=== PATIENT | female | born 1995 | race Caucasian/White ===

== ENCOUNTER 2017-10-03 08:17 | Emergency (ER) | payer MEDICAID, OTHER ==
[~2017-10-03] VITALS: Ht 162.6 cm; Wt 70.0 kg
[2017-10-03] MEDS ORDERED: SODIUM CHLORIDE 0.9% 1,000 ML IV ONE ×4 (09:45→15:15)
[2017-10-03 10:23] LABS: BASOPHILS % 0.6 % (0.0-2.0); EOSINOPHILS % 0.2 % (0.0-5.0); HEMATOCRIT. 38.4 % (36.0-48.0); HEMOGLOBIN. 13.2 g/dL (12.0-16.0); LYMPHOCYTES % 15.5 % (20.0-50.0); MEAN CORPUSCULAR HEMOGLOBIN 30.5 pg (28.0-32.0); MEAN CORPUSCULAR VOLUME 88.3 fL (81.0-99.0); MEAN PLATELET VOLUME 7.8 fl (7.4-10.4); MONOCYTES % 3.6 % (2.0-8.0); NEUTROPHILS % 80.1 % (40.0-76.0); PLATELET 293 x1000/uL (130-400); RED BLOOD CELL COUNT 4.35 mill/uL (4.2-5.4); RED CELL DISTRIBUTION WIDTH 12.2 % (11.6-14.6)
[2017-10-03 10:32] LABS: INR 1.1; PROTHROMBIN TIME 11.4 sec (9.4-11.6)
[2017-10-03 10:50] LABS: CARBON DIOXIDE 24 mEq/L (21-32); CHLORIDE 107 mEq/L (98-107); TROPONIN I < 0.02 ng/mL (0.00-0.04)
[2017-10-03] MEDS ORDERED: ZIPRASIDONE MESYLATE 20MG/VIAL IM ONE (11:15)
[2017-10-03] MEDS ORDERED: OLANZAPINE 10 MG/VIAL IM ONE (11:15)
[2017-10-03 11:27] LABS: CLARITY URINE CLEAR (CLEAR); COLOR URINE YELLOW (YELLOW); KETONES URINE 1+ (NEGATIVE); LEUKOCYTE ESTERASE URINE NEGATIVE (NEGATIVE); NITRITE URINE NEGATIVE (NEGATIVE); OCCULT BLOOD URINE 3+ (NEGATIVE); PROTEIN URINE NEGATIVE (NEGATIVE); SPECIFIC GRAVITY URINE 1.009 (1.005-1.030); UROBILINOGEN URINE 0.2 E.U./dL (0.2-1.0)
[2017-10-03] MEDS ORDERED: LORAZEPAM 0.5MG TABLET PO ONE (12:15)
[2017-10-03 12:29] LABS: *AMPHETAMINES SCREEN URINE PRESUMTIVE POSITIVE (NEGATIVE); *BARBITURATES SCREEN URINE NEGATIVE (NEGATIVE); *BENZODIAZEPINES SCREEN URINE NEGATIVE (NEGATIVE); *COCAINE SCREEN URINE NEGATIVE (NEGATIVE); CANNABINOID URINE SCREEN NEGATIVE (NEGATIVE); METHADONE URINE SCREEN NEGATIVE (NEGATIVE); OPIATES URINE SCREEN NEGATIVE (NEGATIVE); PHENCYCLIDINE URINE SCREEN NEGATIVE (NEGATIVE)
[2017-10-03 13:55] LABS: HEPATITIS B SURFACE ANTIGEN NEGATIVE
[2017-10-03 14:23] LABS: HEPATITIS B CORE AB IGM NEGATIVE
[2017-10-03 14:24] LABS: HEPATITIS A AB IGM NEGATIVE (NEGATIVE)
[2017-10-03 17:45] VITALS: BP 108/62
== END 2017-10-03 18:05 | disposition home or self-care (01) ==
LOC: ER 09:02
DX: Z02.89 Encounter for other administrative examinations (principal); E86.0 Dehydration; R00.0 Tachycardia, unspecified; R45.1 Restlessness and agitation; F14.10 Cocaine abuse, uncomplicated; F15.10 Other stimulant abuse, uncomplicated; R79.1 Abnormal coagulation profile; Z87.440 Personal history of urinary (tract) infections
CPT/HCPCS: 36415; 71045; 80053; 80305; 81001; 81025; 83036; 83735; 83880; 84484; 85025; 85610; 93005; 96360; 96361; 96372; 99285; J3486; J3490; J7030; Z7610; 86705; 86709; 86803; 87340

== ENCOUNTER 2019-12-08 16:58 | Emergency (ER) | payer MEDICAID ==
[~2019-12-08] VITALS: Ht 157.5 cm; Wt 100.0 kg
[2019-12-08] MEDS ORDERED: OLANZAPINE 5MG TABLET ODT PO ONE (19:45)
[2019-12-08 20:27] LABS: CHLORIDE 110 mEq/L (98-107)
[2019-12-08 20:31] LABS: ETHANOL BLOOD < 10 mg/dL
[2019-12-08 20:34] LABS: BASOPHILS % 0.3 % (0.0-2.0); EOSINOPHILS % 0.6 % (0.0-5.0); HEMOGLOBIN. 12.6 g/dL (12.0-16.0); LYMPHOCYTES % 21.1 % (20.0-50.0); MEAN CORPUSCULAR HEMOGLOBIN 29.8 pg (28.0-32.0); MEAN CORPUSCULAR VOLUME 87.4 fL (81.0-99.0); MEAN PLATELET VOLUME 7.3 fl (7.4-10.4); MONOCYTES % 5.4 % (2.0-8.0); NEUTROPHILS % 72.6 % (40.0-76.0); PLATELET 342 x1000/uL (130-400); RED BLOOD CELL COUNT 4.23 mill/uL (4.2-5.4); RED CELL DISTRIBUTION WIDTH 12.9 % (11.6-14.6)
[2019-12-08 20:58] LABS: CLARITY URINE TURBID (CLEAR); COLOR URINE YELLOW (YELLOW); KETONES URINE NEGATIVE (NEGATIVE); LEUKOCYTE ESTERASE URINE 1+ (NEGATIVE); NITRITE URINE POSITIVE (NEGATIVE); OCCULT BLOOD URINE NEGATIVE (NEGATIVE); PH URINE 7.5 (4.5-8.0); PROTEIN URINE NEGATIVE (NEGATIVE); SPECIFIC GRAVITY URINE 1.022 (1.005-1.030); UROBILINOGEN URINE 0.2 E.U./dL (0.2-1.0)
[2019-12-08 21:05] LABS: METHADONE URINE SCREEN NEGATIVE (NEGATIVE); OPIATES URINE SCREEN NEGATIVE (NEGATIVE)
[2019-12-08 21:06] LABS: *AMPHETAMINES SCREEN URINE NEGATIVE (NEGATIVE); *BARBITURATES SCREEN URINE NEGATIVE (NEGATIVE); *BENZODIAZEPINES SCREEN URINE NEGATIVE (NEGATIVE); *COCAINE SCREEN URINE NEGATIVE (NEGATIVE); CANNABINOID URINE SCREEN NEGATIVE (NEGATIVE); PHENCYCLIDINE URINE SCREEN NEGATIVE (NEGATIVE)
[2019-12-08] MEDS ORDERED: LORAZEPAM 1MG TABLET PO ONE (21:15)
[2019-12-08] MEDS ORDERED: CEPHALEXIN 250MG CAPSULE PO SCH (21:30)
[2019-12-09] MEDS ORDERED: OLANZAPINE 5MG TABLET ODT PO SCH (02:15)
[2019-12-09] MEDS: CEPHALEXIN 250MG CAPSULE PO SCH ×3 (03:03→17:00)
[2019-12-09] MEDS ORDERED: OLANZAPINE 10MG TABLET PO NR (15:28)
[2019-12-09] MEDS ORDERED: HALOPERIDOL LACTATE 5MG/ML VIAL IM ONE (17:15)
[2019-12-09] MEDS ORDERED: LORAZEPAM 2MG/ML CPJ IM ONE (17:15)
[2019-12-09] MEDS ORDERED: LORAZEPAM 1MG TABLET PO ONE (20:45)
[2019-12-10] MEDS: CEPHALEXIN 250MG CAPSULE PO SCH (08:53)
[2019-12-10] MEDS ORDERED: LORAZEPAM 1MG TABLET PO ONE (09:00)
[2019-12-10 15:20] VITALS: BP 101/64
== END 2019-12-10 16:08 | disposition short-term general hospital (02) ==
LOC: ER 16:58
DX: R45.851 Suicidal ideations (principal); N39.0 Urinary tract infection, site not specified; F31.9 Bipolar disorder, unspecified; F20.9 Schizophrenia, unspecified; F14.10 Cocaine abuse, uncomplicated; F15.10 Other stimulant abuse, uncomplicated; F17.290 Nicotine dependence, other tobacco product, uncomplicated; Z72.89 Other problems related to lifestyle
CPT/HCPCS: 36415; 80053; 80305; 80320; 81003; 85025; 96372; 99285; 99406; G0480

== ENCOUNTER 2022-06-01 20:11 | Inpatient (IN) | payer MEDICAID ==
[~2022-06-01] VITALS: Ht 162.6 cm; Wt 137.0 kg
[2022-06-01] MEDS ORDERED: SODIUM CHLORIDE 0.9% 1,000 ML IV ONE (20:30)
[2022-06-01 21:19] LABS: BASOPHILS % 1.2 % (0.0-2.0); EOSINOPHILS % 1.4 % (0.0-5.0); HEMOGLOBIN. 12.6 g/dL (12.0-16.0); LYMPHOCYTES % 22.9 % (20.0-50.0); MEAN CORPUSCULAR HEMOGLOBIN 27.6 pg (28.0-32.0); MEAN CORPUSCULAR VOLUME 83.5 fL (81.0-99.0); MONOCYTES % 2.8 % (2.0-8.0); NEUTROPHILS % 71.7 % (40.0-76.0); PLATELET 398 x1000/uL (130-400); RED BLOOD CELL COUNT 4.56 mill/uL (4.2-5.4); RED CELL DISTRIBUTION WIDTH 15.6 % (11.6-14.6)
[2022-06-01 21:20] LABS: CHLORIDE 102 mEq/L (98-107)
[2022-06-01 21:25] LABS: HCG SCREEN NEGATIVE
[2022-06-01 23:26] LABS: ETHANOL BLOOD < 10 mg/dL
[2022-06-02] MEDS ORDERED: CLONIDINE 0.1MG TABLET PO PRN (01:30)
[2022-06-02] MEDS ORDERED: HYDROCODONE/ACETAMINOPHEN 5/325MG TABLET PO PRN (01:30)
[2022-06-02] MEDS ORDERED: ONDANSETRON HCL 4MG/2ML INJ IV PRN (01:30)
[2022-06-02] MEDS ORDERED: MAGNESIUM/ALUMINUM HYDROXIDE/SIMETHICONE 30ML UDC PO PRN (01:30)
[2022-06-02] MEDS ORDERED: IPRATROPIUM/ALBUTEROL 0.5-3(2.5)MG/3ML NEB NEB PRN (01:30)
[2022-06-02] MEDS ORDERED: GUAIFENESIN 200MG/10ML SUGAR FREE UDC PO PRN (01:30)
[2022-06-02] MEDS ORDERED: ACETAMINOPHEN 325MG TABLET PO PRN ×2 (01:30)
[2022-06-02] MEDS ORDERED: NALOXONE HCL 0.4MG/ML VIAL IV PRN (02:15)
[2022-06-02 03:56] LABS: HEMATOCRIT 35.9 % (36.0-48.0); HEMOGLOBIN 11.7 g/dL (12.0-16.0); MEAN CORPUSCULAR HEMOGLOBIN 27.3 pg (28.0-32.0); MEAN CORPUSCULAR VOLUME 83.6 fL (81.0-99.0); PLATELET 365 x1000/uL (130-400); RED BLOOD CELL COUNT 4.29 mill/uL (4.2-5.4); RED CELL DISTRIBUTION WIDTH 15.8 % (11.6-14.6)
[2022-06-02 04:04] LABS: CHLORIDE 109 mEq/L (98-107)
[2022-06-02 04:11] LABS: HDL CHOLESTEROL 26 mg/dL (40-59); LDL CHOLESTEROL 79 mg/dL (5-100); PHOSPHORUS 3.7 mg/dL (2.5-4.9)
[2022-06-02 08:00] VITALS: BP_SYST 102; BP_SYST 98; BP_DIAS 50; BP_DIAS 54
[2022-06-02] MEDS: ENOXAPARIN 30MG/0.3ML SYR SUBCUT SCH ×2 (10:53→20:36)
[2022-06-02] MEDS ORDERED: ESCI10TA PO (11:38)
[2022-06-02] MEDS ORDERED: ABIL5 PO (11:38)
[2022-06-02] MEDS ORDERED: GABA-532 PO (11:38)
[2022-06-02] MEDS ORDERED: OLAN20TA34 PO (11:38)
[2022-06-02 12:00] VITALS: BP 105/53
[2022-06-02] MEDS ORDERED: METF-874 PO (12:10)
[2022-06-02] MEDS ORDERED: GABAPENTIN 300MG CAPSULE PO PRN ×2 (13:30→15:15)
[2022-06-02] MEDS: ARIPIPRAZOLE 5MG TABLET PO SCH (14:39)
[2022-06-02 16:00] VITALS: BP 118/52
[2022-06-02 20:00] VITALS: BP 106/56
[2022-06-02] MEDS ORDERED: POTASSIUM CHLORIDE 20MEQ TABLET SR PO NR (20:15)
[2022-06-02] MEDS ORDERED: OLANZAPINE 10MG TABLET PO SCH (21:00)
[2022-06-03 00:11] VITALS: BP 110/58
[2022-06-03 04:00] VITALS: BP 108/54
[2022-06-03 08:00] VITALS: BP 111/60
[2022-06-03 08:38] LABS: BASOPHILS % 0.4 % (0.0-2.0); EOSINOPHILS % 1.9 % (0.0-5.0); HEMATOCRIT. 40.9 % (36.0-48.0); LYMPHOCYTES % 24.9 % (20.0-50.0); MEAN CORPUSCULAR HEMOGLOBIN 27.3 pg (28.0-32.0); MEAN CORPUSCULAR VOLUME 85.8 fL (81.0-99.0); MEAN PLATELET VOLUME 7.1 fl (7.4-10.4); MONOCYTES % 4.1 % (2.0-8.0); NEUTROPHILS % 68.7 % (40.0-76.0); PLATELET 370 x1000/uL (130-400); RED BLOOD CELL COUNT 4.77 mill/uL (4.2-5.4); RED CELL DISTRIBUTION WIDTH 16.3 % (11.6-14.6)
[2022-06-03] MEDS: ENOXAPARIN 30MG/0.3ML SYR SUBCUT SCH (08:38)
[2022-06-03] MEDS: ARIPIPRAZOLE 5MG TABLET PO SCH (08:38)
[2022-06-03 09:38] LABS: CHLORIDE 108 mEq/L (98-107)
[2022-06-03 12:00] VITALS: BP 109/65
[2022-06-03 15:06] VITALS: BP 109/65
== END 2022-06-03 17:36 | disposition home or self-care (01) | DRG 756 ==
LOC: ER 20:11 → 6WST 06-02 01:04 → SUPCPDRO 06-02 01:21 → EDBEDREQTM 06-02 01:25 → EDBEDREQ 06-02 01:25 → ER 06-02 06:36
PROVIDERS: ADMIT Internal Medicine; ATTEND Internal Medicine
DX: F41.0 Panic disorder [episodic paroxysmal anxiety] (principal); E11.9 Type 2 diabetes mellitus without complications; F41.9 Anxiety disorder, unspecified; R00.2 Palpitations; I10 Essential (primary) hypertension; E78.00 Pure hypercholesterolemia, unspecified; F30.9 Manic episode, unspecified; R07.9 Chest pain, unspecified; F43.10 Post-traumatic stress disorder, unspecified; F15.90 Other stimulant use, unspecified, uncomplicated; F14.90 Cocaine use, unspecified, uncomplicated; F17.210 Nicotine dependence, cigarettes, uncomplicated; Z79.899 Other long term (current) drug therapy
CPT/HCPCS: 36415; 71045; 80048; 80053; 80061; 80320; 83036; 83735; 83880; 84100; 84443; 84484; 84703; 85025; 85027; 93005; 93306; 99285; J1650; J7030; G0480